=== PATIENT | female | born 2000 | race Caucasian/White ===

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

== ENCOUNTER 2022-08-07 19:52 | Emergency (ER) | payer SELFPAY ==
[~2022-08-07] VITALS: Ht 162.6 cm; Wt 95.5 kg
[2022-08-07 20:57] LABS: COVID AG,FIA SOURCE NASAL SWAB
[2022-08-07 21:20] LABS: INFLUENZA TYPE A NEGATIVE FOR TYPE A (NEGATIVE); INFLUENZA TYPE B NEGATIVE FOR TYPE B (NEGATIVE)
[2022-08-07] MEDS ORDERED: BENZ1LOZ77 PO (22:08)
[2022-08-07] MEDS ORDERED: BENZ-227 PO (22:08)
[2022-08-07 22:30] VITALS: BP 115/89
== END 2022-08-07 22:31 | disposition home or self-care (01) ==
LOC: EMS 19:54
DX: J06.9 Acute upper respiratory infection, unspecified (principal); Z20.822 Contact with and (suspected) exposure to COVID-19
CPT/HCPCS: 87804; 99283